=== PATIENT | male | born 1970 | race Caucasian/White ===

== ENCOUNTER 2019-08-06 16:22 | Emergency (ER) | payer OTHER | END 2019-08-06 17:40 | disposition home or self-care (01) | LOC: ERS 16:22 | DX: K40.90 Unilateral inguinal hernia, without obstruction or gangrene, not specified as recurrent (principal) | CPT/HCPCS: 99282 ==

== ENCOUNTER 2019-08-08 11:36 | Day surgery (SDC) | payer OTHER ==
[2019-08-07 15:35] VITALS: BMI 24.9
[~2019-08-08 11:36] MED LIST: Dexamethasone 20 MG/5 ML VIAL ONE; EPHEDRINE 25 MG/5 ML SYRINGE ONE; Ketorolac Tromethamine 30 MG/ML VIAL ONE; Lidocaine 1% PF 5 ML VIAL ONE; Metoclopramide HCl 10 MG/2 ML VIAL ONE; Ondansetron PF 4 MG/2 ML Vial ONE; PROPOFOL 200 MG/20 ML VIAL ONE
[2019-08-08] MEDS ORDERED: Bupivacaine PF 0.5% 30 ML VIAL ONE ×2 (13:03→13:04)
[2019-08-08] MEDS ORDERED: Lidocaine 2% PF 5 ML VIAL ONE (13:04)
[2019-08-08] MEDS ORDERED: Bupivacaine 0.25% HCL 30 ML VIAL ONE (13:04)
[2019-08-08] MEDS ORDERED: EPINEPHrine 1 MG/ML AMP ONE (13:05)
[2019-08-08] MEDS ORDERED: Fentanyl 100 MCG/2 ML VIAL ONE ×2 (13:22)
[2019-08-08] MEDS ORDERED: Famotidine/PF 20 mg/2ml Vial ONE (13:22)
--- NOTE | 2019-08-11 09:21 | OP ---
DATE OF PROCEDURE: 08/08/2019 PREOPERATIVE DIAGNOSIS: Right inguinal hernia. POSTOPERATIVE DIAGNOSIS: Right inguinal hernia. PROCEDURE PERFORMED: Right inguinal hernia repair with mesh, PHS extended. ANESTHESIA: General. ESTIMATED BLOOD LOSS: Minimal. COMPLICATIONS: None. SPECIMEN: None. DESCRIPTION OF PROCEDURE: The patient was taken to the operating room and laid supine on the operating room table. After general anesthetic was obtained, the right groin was shaved, prepped, and draped in a sterile fashion. An oblique incision was made above the pubic tubercle in the right lower quadrant. Cautery was dissected down through Alfonso's to expose external oblique. External oblique fibers opened along the course of the external ring. Contents of the inguinal canal were dissected from the backside of the external oblique. The ilioinguinal nerve was found and segmentally high removed to prevent postop pain. The cord structures were mobilized on the pubic tubercle using a [place] drain, dissection superiorly and medially on the cord showed to be a large indirect hernia sac. This was dissected back away from surrounding structures. A high ligation was performed after opening the sac to reveal no obvious intraabdominal contents. Preperitoneal space was bluntly dissected through the defect. The PHS extended mesh was brought in and to the sterile field. The underlay placed in the preperitoneal space. Its fibers laid out flat against the posterior abdominal wall. The overlay was laid in the inguinal floor. Ethibond sutures were used to suture the mesh distally to the pubic tubercle, medially to the transverse arch, laterally to the shelving edge of inguinal ligament. The mesh was cut to incorporate the internal ring. The two ends were reapproximated at the shelving edge of inguinal ligament. Extra mesh was tucked back under the external oblique proximally. The wound was irrigated. Local anesthetic was applied. The tunnel catheter for postop pain threaded from above the incision, left on top of the mesh. External oblique was closed using 3-0 Vicryl, Alfonso was closed using 3-0 Vicryl, skin was closed using running 4-0 Monocryl and Dermabond. The patient was sent to Recovery in stable condition. All instrument counts, needle counts, lap counts were correct. Job ID: [id number]
== END 2019-08-08 16:48 | disposition home or self-care (01) ==
LOC: SDC 11:36
PROVIDERS: ATTEND Surgery
PROC: 0YU50JZ Supplement Right Inguinal Region with Synthetic Substitute, Open Approach (ICD-10-PCS; principal; 2019-08-08)
DX: K40.30 Unilateral inguinal hernia, with obstruction, without gangrene, not specified as recurrent (principal); Z88.2 Allergy status to sulfonamides
CPT/HCPCS: A4306; C1781; J0171; J0690; J1100; J1885; J2001; J2405; J2704; J2765; J3010; S0020; S0028